=== PATIENT | female | born 1930 | race Caucasian/White ===

== ENCOUNTER 2018-08-26 09:16 | Emergency (ER) | payer OTHER ==
[~2018-08-26] VITALS: Ht 160 cm; Wt 77.1 kg
[~2018-08-26 09:16] MED LIST: ALLO300T2; AMLO10TA12; DICY10CA12; DOCU1CAP54; FERR324T11; FURO40TA4; LORA-653; OLAN10TA29; PANTOPRAZOLE SOD DR 40 MG TAB; POTA20TA53; [UNRECOGNIZED DRUG - OTHER]
[2018-08-26] MEDS ORDERED: cloNIDine HCL 0.1 MG TAB PO ONE (11:30)
[2018-08-26] MEDS ORDERED: KETOROLAC TROMETH 30 MG/ML 1ML VIAL IV ONE (12:00)
[2018-08-26 12:13] LABS: Urine WBC None Seen /hpf (0 - 5)
[2018-08-26 12:27] LABS: Basophils # (auto) 0 uL; Basophils % (auto) 0.9 % (0.0-2.0); Eosinophils # (auto) 0.1 uL; Eosinophils % (auto) 3.4 % (0.0-7.0); Hematocrit 36.1 % (36.0-46.0); Hemoglobin 12.2 g/dL (12.2-16.2); Lymphocytes # (auto) 1.2 uL; Lymphocytes % (auto) 28.6 % (10.0-50.0); Mean Corpuscular Hemoglobin 31.5 pg (28.0-32.0); Mean Corpuscular Hgb Conc. 33.9 g/dL (32.0-36.0); Monocytes # (auto) 0.3 uL; Monocytes % (auto) 6.7 % (0.0-12.0); Neutrophils # (auto) 2.6 uL; Neutrophils % (auto) 60.4 % (37.0-80.0); Platelet Count (auto) 152 10^3/uL (140-450); Red Blood Cells 3.89 10^6/uL (4.0-5.20); Red Cell Distribution Width 13.6 % (11.8-14.3); White Blood Cell 4.3 10^3/uL (4.4-10.8)
[2018-08-26 12:29] LABS: Urine Bacteria NONE SEEN /hpf (None Seen); Urine Blood TRACE /uL (Negative); Urine Specific Gravity 1.017 (1.001-1.035)
[2018-08-26 12:41] LABS: Albumin 3.9 g/dL (3.4-5.0)
[2018-08-26 12:44] LABS: BUN/Creatinine Ratio 29.7; Bilirubin, Total 0.6 mg/dL (0.2-1.0); Total Protein 7.3 g/dL (6.4-8.2)
[2018-08-26 13:40] VITALS: BP 148/65
== END 2018-08-26 13:54 | disposition home or self-care (01) ==
LOC: EDBD 09:16 → ER 09:16
DX: M17.11 Unilateral primary osteoarthritis, right knee (principal); I11.0 Hypertensive heart disease with heart failure; I50.9 Heart failure, unspecified; K21.9 Gastro-esophageal reflux disease without esophagitis; Z90.89 Acquired absence of other organs; Z88.6 Allergy status to analgesic agent; Z88.2 Allergy status to sulfonamides
CPT/HCPCS: 36415; 73562; 74176; 80053; 81001; 85025; 93005; 96374; 99284; J1885